=== PATIENT | female | born 1980 | race Caucasian/White ===

== ENCOUNTER 2019-11-24 17:36 | Emergency (ER) | payer BC ==
[2019-11-24 18:17] LABS: ABSOLUTE LYMPHOCYTES (AUTO) 1.1 10^3/uL (0.5-4.7); ABSOLUTE MONOCYTES (AUTO) 0.4 10^3/uL (0.1-1.4); ABSOLUTE NEUT (AUTO) 4.7 10^3/uL (1.7-8.2); BASOPHILS % (AUTO) 0.5 % (0-2); EOSINOPHILS % (AUTO) 0.4 % (0-6); HEMATOCRIT 40.6 % (36.0-47.0); LYMPHOCYTES % (AUTO) 17.5 % (13-45); MEAN CORPUSCULAR HEMOGLOBIN 34.4 pg (27.0-33.4); MEAN CORPUSCULAR HGB CONC 34.4 g/dL (32.0-36.0); MEAN CORPUSCULAR VOLUME 100 fl (80-97); MONOCYTES % (AUTO) 6.7 % (3-13); PLATELET COUNT 195 10^3/uL (150-450); RED BLOOD COUNT 4.06 10^6/uL (3.72-5.28); RED CELL DISTRIBUTION WIDTH 12.4 % (11.5-14.0); SEGMENTED NEUTROPHILS % (AUTO) 74.9 % (42-78); TOTAL CELLS COUNTED % (AUTO) 100 %; WHITE BLOOD COUNT 6.3 10^3/uL (4.0-10.5)
[2019-11-24 18:34] LABS: ALBUMIN 4.5 g/dL (3.5-5.0); ALKALINE PHOSPHATASE 62 U/L (38-126); ANION GAP 6 (5-19); ASPARTATE AMINO TRANSFERASE 23 U/L (14-36); BILIRUBIN,TOTAL 0.5 mg/dL (0.2-1.3); BLOOD UREA NITROGEN 18 mg/dL (7-20); CALCIUM 9.5 mg/dL (8.4-10.2); CARBON DIOXIDE 29 mmol/L (22-30); CHLORIDE 105 mmol/L (98-107); CREATINE KINASE 39 U/L (30-135); GLUCOSE 96 mg/dL (75-110); POTASSIUM 4.2 mmol/L (3.6-5.0); TOTAL PROTEIN 7.3 g/dL (6.3-8.2)
[2019-11-24 18:45] LABS: CREATINE KINASE MB < 0.22 ng/mL (<4.55); TROPONIN I < 0.012 ng/mL
--- NOTE | 2019-11-24 19:03 | EKG REPORT ---
SEVERITY:- NORMAL ECG - SINUS RHYTHM : Confirmed by: Lilliana Jordan 24-Nov-2019 19:02:28
[2019-11-24] MEDS ORDERED: MORPHINE SULFATE 10 MG/ML INJ IV ONE (19:11)
--- NOTE | 2019-11-24 19:13 | ER Document Report ---
ED Cardiac - General Mode of Arrival: Ambulatory Information source: Patient TRAVEL OUTSIDE OF THE [place] IN LAST 30 DAYS: No <DEQUAN DONAHUE - Last Filed: 11/24/19 20:04> <RENAYDEONTEEPIFANIO - Last Filed: 11/24/19 22:02> - General Chief Complaint: Chest Pain Stated Complaint: CHEST PAIN Time Seen by Provider: 11/24/19 18:31 Primary Care Provider: MIKO PARIS MD [ACTIVE STAFF] - Follow up tomorrow Notes: 39-year-old female with no previous medical problems presents to the emergency room complaining of intermittent midsternal sharp chest pain that is been ongoing for the past 3 days. States it radiates into her left arm causing numbness to her left arm. She states it was intermittent in her arm until today and it is more constant. Has not taken any medications for her symptoms. She denies any shortness of breath, no difficulty breathing. No recent travel. No history of PE or DVTs. Not currently on control. No COVID-19 exposure (DEQUAN DONAHUE) - Related Data Allergies/Adverse Reactions: meloxicam [From Mobic] Allergy (Verified 11/24/19 18:20) Past Medical History - General Information source: Patient - Social History Smoking Status: Former Smoker Frequency of alcohol use: None Drug Abuse: None Family History: CAD, Hypertension Patient has homicidal ideation: No <DEQUAN DONAHUE - Last Filed: 11/24/19 20:04> Review of Systems - Review of Systems Constitutional: No symptoms reported EENT: No symptoms reported Cardiovascular: Chest pain Respiratory: No symptoms reported Gastrointestinal: No symptoms reported Musculoskeletal: Muscle pain Skin: No symptoms reported Neurological/Psychological: No symptoms reported -: Yes All other systems reviewed and negative <DEQUAN DONAHUE - Last Filed: 11/24/19 20:04> Physical Exam - General General appearance: Appears well, Alert In distress: Mild - Respiratory Respiratory status: No respiratory distress Chest status: Nontender Breath sounds: Normal Chest palpation: Normal - Cardiovascular Rhythm: Regular Heart sounds: Normal auscultation Murmur: No - Extremities General upper extremity: Normal inspection, Nontender, Normal color, Normal ROM, Normal temperature General lower extremity: Normal inspection, Nontender, Normal color, Normal ROM, Normal temperature, Normal weight bearing. No: Sonali's sign - Neurological Neuro grossly intact: Yes Cognition: Normal Orientation: AAOx4 [place] Coma Scale Eye Opening: Spontaneous [place] Coma Scale Verbal: Oriented [place] Coma Scale Motor: Obeys Commands Chelita Coma Scale Total: 15 Speech: Normal Motor strength normal: LUE, RUE, LLE, RLE Sensory: Normal - Skin Skin Temperature: Warm Skin Moisture: Dry Skin Color: Normal <DEQUAN DONAHUE - Last Filed: 11/24/19 20:04> - Vital signs Vitals: Temp Pulse Resp BP Pulse Ox 98.3 F 81 20 126/86 H 100 11/24/19 17:46 11/24/19 17:46 11/24/19 17:46 11/24/19 17:46 11/24/19 17:46 Course - Laboratory Result Diagrams: 11/24/19 18:08 11/24/19 18:08 - EKG Interpretation by Me EKG shows normal: Sinus rhythm - Transfer of Care Care transferred to following provider: Epifanio CHADWICK <DEQUAN DONAHUE - Last Filed: 11/24/19 20:04> - Laboratory Result Diagrams: 11/24/19 18:08 11/24/19 18:08 <EPIFANIO ADAMS - Last Filed: 11/24/19 22:02> - Re-evaluation Re-evalutation: 11/24/19 19:17 HEART Score: History 1 ECG 0 Age 0 Risk Factors 2 Troponin 0 Total: 3 Chest pain in a patient without evidence of cardiac or other serious etiology on workup today. I discussed with patient that, based on their age, risk factors and emergency department testing today, the likelihood that their symptoms are related to a heart attack is very low (estimated risk of heart attack or over the next 30 days of less than 1%). The patient demonstrates decision m aking capacity and has verbalized an understanding of these risks to me. Based on this, the patient has chosen to follow-up as an outpatient. Usual chest pain return precautions reviewed. The patient states understanding and agreement with this plan. 11/24/19 19:19 11/24/19 20:04 Patient resting with decreased pain. Signed out to Epifanio CHADWICK physical, history and pending test results. discussed (DEQUAN DONAHUE) 11/24/19 21:55 On evaluation patient is comfortable and well-appearing. Vital signs unremarkable. She has no current complaints. EKG unremarkable with no ischemia, chest x-ray unremarkable, CBC, chemistry, 2 troponins are negative. test not performed here today but patient insists that she is not and is ready for discharge. Patient with heart score of 3, although history is questionable because patient is now adding details when I discussed with her and this actually may be 2, she states that pain is intermittent, sharp, occasionally worse with a deep breath, reproducible by pressing along her left sternal border with a finger. Because of pleuritic component and pain along the sternal border which is specific patient was recommended to take anti- inflammatories, apply warmth of the area, and so follow-up with cardiology because of her concerning family history. Patient states she has taken naproxen without good effect, she is requesting additional management, she was given Decadron. Discussed expectations, follow-up, and return precautions. Patient states understanding and agreement with plan. (EPIFANIO ADAMS) - Vital Signs Vital signs: Temp Pulse Resp BP Pulse Ox 98.3 F 81 17 101/78 100 11/24/19 18:14 11/24/19 17:46 11/24/19 21:01 11/24/19 21:01 11/24/19 21:01 - Laboratory Laboratory results interpreted by me: 11/24/19 18:08 MCV 100 H MCH 34.4 H - EKG Interpretation by Me Additional EKG results interpreted by me: 11/24/19 19:16 EKG interpreted by ER physician Dr. Lilly No acute STEMI (DEQUAN DONAHUE) Discharge <DEQUAN DONAHUE - Last Filed: 11/24/19 20:04> <EPIFANIO ADAMS - Last Filed: 11/24/19 22:02> - Discharge Clinical Impression: Chest pain Qualifiers: Chest pain type: unspecified Qualified Code(s): R07.9 - Chest pain, unspecified Condition: Stable Disposition: HOME, SELF-CARE Additional Instructions: Your work-up at this time does not show any concerning findings, your symptoms along your chest wall and with deep breaths suggest a pleuritic component, possibly pleurisy or the cartilage in your chest wall. However because of your symptoms and family history please follow-up with the cardiology referral for additional management, call the referral listed tomorrow for close follow-up and additional management. Return if you worsen including severe worsening pain, difficulty breathing, spiking fever, passing out, or any other concerning symptoms. Referrals: MIKO PARIS MD [ACTIVE STAFF] - Follow up tomorrow
--- NOTE | 2019-11-24 20:05 | RADIOLOGY REPORT (SQ) ---
EXAM DESCRIPTION: CHEST SINGLE VIEW IMAGES COMPLETED DATE/TIME: 11/24/2019 7:57 pm REASON FOR STUDY: chest pain COMPARISON: None. EXAM PARAMETERS: NUMBER OF VIEWS: One view. TECHNIQUE: Single frontal radiographic view of the chest acquired. RADIATION DOSE: NA LIMITATIONS: None. FINDINGS: LUNGS AND PLEURA: No opacities, masses or pneumothorax. No pleural effusion. MEDIASTINUM AND HILAR STRUCTURES: No masses. Contour normal. HEART AND VASCULAR STRUCTURES: Heart normal in size. Normal vasculature. BONES: No acute findings. HARDWARE: None in the chest. OTHER: No other significant finding. IMPRESSION: No acute pulmonary findings. TECHNICAL DOCUMENTATION: JOB ID: [id number] 2010 [employer]- All Rights Reserved Reading location - IP/workstation name: [email or web address]
[2019-11-24 21:06] VITALS: BP 101/78
[2019-11-24] MEDS ORDERED: DEXAMETHASONE SOD PHOS INJ 10 MG/1 ML VIAL IV ONE (21:58)
== END 2019-11-24 22:33 | disposition home or self-care (01) ==
LOC: ER 17:36
DX: R07.9 Chest pain, unspecified (principal); R20.0 Anesthesia of skin; M79.10 Myalgia, unspecified site; Z88.8 Allergy status to other drugs, medicaments and biological substances; Z87.891 Personal history of nicotine dependence; Z82.49 Family history of ischemic heart disease and other diseases of the circulatory system
CPT/HCPCS: 93005; 99285; 96374; 96375; 36415; 82553; 82550; 85025; 80053; 84484; 71045; 93010; J2270; J1100